=== PATIENT | male | born 1980 | race African-American/Black ===

== ENCOUNTER 2019-08-23 20:00 | Observation (INO) ==
[2019-08-23] MEDS ORDERED: NS 0.9% 1000 ml BAG 1,000 ML IV ONE (23:13)
[2019-08-24 00:21] LABS: Activated Partial Thrombo Time 29.4 seconds (26.0-38.0); INR 1.16 (0.82-1.09)
[2019-08-24 00:29] LABS: ABS Lymphocytes 0.2 10^3/ul (1.0-4.8); ABS Monocytes 0.4 10^3/ul (0-0.8); Eosinophil % 0.2 %; Hematocrit 44 % (42-52); Hemoglobin 14.8 g/dL (14.0-18.0); Lymphocyte % 1.5 %; Mean Corpuscular HGB Conc 34 g/dL (31-36); Mean Corpuscular Hemoglobin 27 pg (27-31); Mean Corpuscular Volume 80 fL (80-94); Mean Platelet Volume 7.9 fL (7.4-10.4); Nucleated Red Blood Cells % 0.2; Platelet Count 250 10^3/uL (150-450); Red Blood Count 5.45 10^6 /uL (4.18-5.48); Red Cell Distribution Width 16 % (10-15); White Blood Count 11.5 10^3/uL (3.5-10.8)
[2019-08-24 00:32] LABS: Albumin 4.2 g/dL (3.2-5.2); Albumin/Globulin Ratio 1.3 (1-3); BUN/Creatinine Ratio 8.3 (8-20); C Reactive Protein 45.25 mg/L (<8.01); Calcium 9.5 mg/dL (8.6-10.3); EGFR African American 73.2 (>60); EGFR Non-African American 60.5 (>60); Globulin 3.3 g/dL (2-4); Potassium 4.1 mmol/L (3.5-5.0); Total Bilirubin 0.7 mg/dL (0.2-1.0); Total Protein 7.5 g/dL (6.4-8.9)
[2019-08-24] MEDS ORDERED: NS 0.9% 1000 ml BAG 2,000 ML IV ONE (01:37)
[2019-08-24] MEDS ORDERED: Ondansetron 4 mg VIAL 2 MG/ML 2 ml VIAL IV ONE (02:02)
[2019-08-24] MEDS ORDERED: cefTRIAXone 1 gm/50 mL NS BAG 1 GM/50 ML BAG IV ONE (02:55)
[2019-08-24] MEDS ORDERED: Al Hydrox/Mg Hydrox/Simet LIQ 30 ML UDC PO PRN (03:33)
[2019-08-24] MEDS ORDERED: Prochlorperazine 5 mg/ml 2 ml VIAL (10 mg) IV PRN ×2 (03:35→15:55)
[2019-08-24] MEDS ORDERED: NS 0.9% 1000 ml BAG 1,000 ML IV SCH ×2 (03:45→05:15)
[2019-08-24] MEDS: Polymyx/Trimethoprim OPTH.SOL 1 BTL LEFT EYE SCH ×7 (04:16→22:34)
[2019-08-24 06:41] LABS: ABS Eosinophils 0.1 10^3/ul (0-0.6); ABS Lymphocytes 0.2 10^3/ul (1.0-4.8); ABS Monocytes 0.6 10^3/ul (0-0.8); Eosinophil % 0.5 %; Hematocrit 39 % (42-52); Hemoglobin 13.1 g/dL (14.0-18.0); Lymphocyte % 1.5 %; Mean Corpuscular HGB Conc 34 g/dL (31-36); Mean Corpuscular Hemoglobin 27 pg (27-31); Mean Corpuscular Volume 81 fL (80-94); Mean Platelet Volume 7.5 fL (7.4-10.4); Nucleated Red Blood Cells % 0.1; Platelet Count 221 10^3/uL (150-450); Red Blood Count 4.81 10^6 /uL (4.18-5.48); Red Cell Distribution Width 16 % (10-15); White Blood Count 12.8 10^3/uL (3.5-10.8)
[2019-08-24 06:56] LABS: BUN/Creatinine Ratio 8.5 (8-20); Calcium 8.2 mg/dL (8.6-10.3); EGFR African American 75.8 (>60); EGFR Non-African American 62.7 (>60); Potassium 4.1 mmol/L (3.5-5.0)
[2019-08-24] MEDS ORDERED: Morphine 2 MG/ML SYRINGE IV PRN (09:00)
[2019-08-24 10:15] LABS: Urine Creatinine Concentration 148.92 mg/dL
[2019-08-24 18:01] LABS: Urine Appearance Clear; Urine Bilirubin Negative (Negative); Urine Blood Negative (Negative); Urine Color Yellow; Urine Glucose Negative (Negative); Urine Ketones Negative (Negative); Urine Nitrite Negative (Negative); Urine Protein Negative (Negative); Urine Specific Gravity 1.013 (1.010-1.030); Urine Urobilinogen Positive (Negative)
[2019-08-25] MEDS: Polymyx/Trimethoprim OPTH.SOL 1 BTL LEFT EYE SCH ×6 (01:05→15:54)
[2019-08-25 07:23] LABS: Albumin 3.1 g/dL (3.2-5.2); Albumin/Globulin Ratio 1.1 (1-3); Calcium 7.9 mg/dL (8.6-10.3); EGFR African American 75.8 (>60); EGFR Non-African American 62.7 (>60); Globulin 2.7 g/dL (2-4); Potassium 3.7 mmol/L (3.5-5.0); Total Bilirubin 1.7 mg/dL (0.2-1.0); Total Protein 5.8 g/dL (6.4-8.9)
[2019-08-25] MEDS: NS 0.9% 1000 ml BAG 2,000 ML IV ONE ×2 (09:50→09:51)
[2019-08-25] MEDS ORDERED: SPIRIVA Respimat (tiotropium) 2.5 mcg/inh Inhaler INH SCH (10:00)
[2019-08-25 12:18] VITALS: BP 117/66
[2019-08-25] MEDS ORDERED: Famotidine IV 10 MG/ML 2 ml VIAL (20 mg) IV SLOW PU ONE (13:22)
== END 2019-08-25 16:15 | disposition home or self-care (01) ==
LOC: ED 20:00 → MED 20:00
PROVIDERS: ADMIT Pediatrics; ATTEND Internal Medicine